=== PATIENT | female | born 1965 | race Asian ===

== ENCOUNTER 2024-02-07 18:41 | Emergency (ER) | payer BC, SELFPAY ==
[2024-02-07 18:54] VITALS: BP 125/86
--- NOTE | 2024-02-07 21:29 | ED.GENMED ---
History of Present Illness
General
Chief Complaint: Abdominal Symptoms
Source: patient
Exam Limitations: none
Time Seen by Provider: 02/07/24 21:12
Travel History
Have you had any contact with someone who has COVID-19?: No
Do you have any symptoms of coronavirus? Fever > 100 degrees, chills, cough, shortness of breath, sore throat, loss of taste or smell, muscle aches, or headache?: No
History of Present Illness
History of Present Illness:
58-year-old female presents with nausea and vomiting onset yesterday reoccurred this morning. She notes mild diffuse abdominal pain. No diarrhea. No fever. No chest pain or cough. Initially seen at the urgent care earlier had lab work performed
and was given IM Zofran. Symptoms are not improving. No diarrhea. No fever. No other complaints at this time
Phy Exam
Physical Exam
Physical Exam:
General: Well-appearing female no acute respiratory distress
HEENT: Normocephalic mucosa dry neck supple
Heart: Regular rate and rhythm no murmur
Lungs: Clear to auscultation bilaterally no wheezing
Abdomen is soft nontender nondistended no guarding or rebound normal bowel sounds
Extremities: No cyanosis or edema
Course
Orders/Labs/Results
Orders:
Orders
02/07/24 21:27
0.9% Sodium Chloride 1000 ml [Nss] 1,000 ml IV BOLUS
Acetaminophen [Tylenol] 650 mg PO NOW STA
Ondansetron Injectable [Zofran] 4 mg IV NOW STA
02/07/24 21:43
Complete Blood Count/With Diff Urgent
Comprehensive Metabolic Panel Urgent
Lipase Urgent
02/07/24 23:41
Urinalysis Reflex To Culture Urgent
Date Specimen was Collected: 02/07/24
Time Specimen was Collected: 23:40
Urine Microscopic Reflex Cult Urgent
02/07/24 23:44
Potassium Chloride [KCl] 40 meq PO NOW STA
02/08/24 00:15
Diphenhydramine [Benadryl] 25 mg IV NOW STA
Prochlorperazine [Compazine] 10 mg IV NOW STA
Abnormal Lab Results
02/07/24 02/07/24
21:43 23:41
MCH 31.5 H pg
(27.0-31.0)
Sodium 134 L mmol/L
(135-145)
Potassium 3.0 L mmol/L
(3.5-5.1)
Creatinine 0.5 L mg/dL
(0.6-1.0)
Glucose 103 H mg/dl
(70-99)
Urine Ketones 1+ A
(Negative)
Leukocyte Esterase Rfl Trace A
(Negative)
Urine Bacteria (Reflex) Few A
(Negative)
02/07/24 21:43
02/07/24 21:43
Vital Signs
Initial and Last Documented VS:
Initial Vital Signs
Temp Pulse Resp BP Pulse Ox
98.1 F 79 18 125/86 95
02/07/24 18:54 02/07/24 18:54 02/07/24 18:54 02/07/24 18:54 02/07/24 18:54
Last Documented Vital Signs
Temp Pulse Resp BP Pulse Ox
98.1 F 82 20 122/86 97
02/07/24 18:54 02/07/24 21:57 02/07/24 21:57 02/07/24 21:57 02/07/24 21:57
MDM/Problems Addressed
Differential Diagnosis Includes:
Nausea with vomiting benign abdominal exam. Do not suspect obstruction. Question possible viral illness. Check for electrolyte abnormality. Will treat symptoms with fluids Zofran and Tylenol for her headache.
*Critical Care Note
Total Time (30-74mins, 75-104mins- exclusive of procedures): Not Applicable
Update Note
Update Note:
Patient reevaluated multiple times. Still with residual headache. Nausea was improved. She was given Tylenol with minimal relief of her headache. Headache has been gradual in onset not sudden. She was given Compazine and Benadryl is now resting
comfortably. She now states she wants to go home. Suspect underlying viral illness.
ED Attending Note
-
Portions of this chart may have been created with voice recognition software.� Occasional wrong word or��sound alike� substitutions may have occurred due to the inherent limitations of voice recognition software.
Discharge Plan
Departure
Patient Disposition: Home (Routine Discharge)
Date of Disposition: 02/08/24
Time of Disposition: 01:35
Patient with high blood pressure during this ER visit?: No
Discharge Problem:
Nausea & vomiting
Prescriptions:
No Action
hydrocodone-acetaminophen 1 TABLET tablet
1 tab PO Q4HPRN PRN (Reason: PAIN > 4) Qty: 20 0RF
Referrals:
Mehnaz Branch MD [Family Provider] -
Activity Restrictions/Additional Instructions:
Drink plenty clear liquids. Advance to bland diet as tolerated. Return for worsening symptoms otherwise follow-up with family doctor
Interventions
Interventions:
*Risk Screen - Suicide Last Done: 02/07/24 18:54
*General Assessment Last Done: 02/07/24 18:54
*Neglect/Abuse Screening Last Done: 02/08/24 01:10
DI-Cfkndq-Temqfmcudk Assessment Last Done: 02/07/24 21:59
[2024-02-07] MEDS: NSS 1000 IV (21:43)
[2024-02-07] MEDS: ZOFRAN 4 MG IV (21:44)
[2024-02-07] MEDS: TYLENOL 650 MG PO (21:44)
[2024-02-07 21:45] VITALS: BMI 19.9
[2024-02-07 21:57] VITALS: BP 122/86
[2024-02-07 21:57] LABS: % Basophils 0.1 % (0-2); % Immature Granulocytes 0.3 % (0-0.5); % Lymphocytes 24.8 % (20.5-51.1); % Monocytes 4.3 % (1.7-9.3); % Neutrophils 70.5 % (42.2-75.2); Absolute Lymphocytes 1.9 10^3/uL (1.2-3.4); Absolute Monocytes 0.3 10^3/uL (0.1-0.6); Absolute Neutrophils 5.4 10^3/uL (1.4-6.5); Hematocrit 37.8 % (37.0-47.0); Hemoglobin 13.5 g/dL (12.0-16.0); Mean Corp Hgb Conc. 35.7 g/dL (33.0-37.0); Mean Corpuscular Hgb 31.5 pg (27.0-31.0); Mean Corpuscular Volume 88.1 fL (81.0-99.0); Mean Platelet Volume 10.2 fL (7.4-10.4); Nucleated Red Blood Cells % 0 %; Platelet Count 226 10^3/uL (130-400); Red Blood Cell Count 4.29 10^6/uL (4.20-5.40); Red Cell Dist. Width 12.5 % (11.5-14.5); White Blood Cell Count 7.6 10^3/uL (4.8-10.8)
[2024-02-07 22:00] VITALS: BP 123/76
[2024-02-07 22:08] LABS: ALT (SGPT) 22 U/L (0-35); AST (SGOT) 26 U/L (14-36); Albumin 4.1 g/dl (3.5-5.0); Alkaline Phosphatase 71 U/L (38-126); Blood Urea Nitrogen 8 mg/dl (7-17); Calcium 9.2 mg/dl (8.4-10.2); Carbon Dioxide 25 mmol/L (22-30); Chloride 103 mmol/L (98-107); Estimated Creatinine Clearance 90 ml/min; Glucose 103 mg/dl (70-99); Lipase 70 U/L (23-300); Sodium 134 mmol/L (135-145); Total Bilirubin 1.1 mg/dl (0.2-1.3); Total Protein 6.6 g/dl (6.3-8.2); eGFR > 60.00
[2024-02-07 23:00] VITALS: BP 123/77
[2024-02-08] MEDS: KCL 40 MEQ PO (00:04)
[2024-02-08 00:14] LABS: Urine Albumin Negative (Neg - Trace); Urine Bilirubin Negative (Negative); Urine Character Clear (Clear); Urine Color Yellow; Urine Glucose Negative (Negative); Urine Ketone 1+ (Negative); Urine Leukocyte Trace (Negative); Urine Nitrite Negative (Negative); Urine Occult Blood Negative (Negative); Urine Urobilinogen Negative (Neg - 1+)
[2024-02-08] MEDS: COMPAZINE 10 MG IV (00:44)
[2024-02-08] MEDS: BENADRYL 25 MG IV (00:45)
[2024-02-08 01:17] LABS: Urine Bacteria Few (Negative); Urine Red Blood Cell 0-2 /HPF (0-2)
[2024-02-08 01:38] VITALS: BP 124/88
== END 2024-02-08 01:52 | disposition home or self-care (01) ==
LOC: EMR 18:41
PROVIDERS: Physician Assistant; EMERGENCY PHYSICIAN Emergency Medicine; FAMILY PHYSICIAN Family Medicine
DX: R11.2 Nausea with vomiting, unspecified (principal); R10.84 Generalized abdominal pain; R51.9 Headache, unspecified
CPT/HCPCS: 99284; 96374; 96375 ×2; 96361; 80053; 81003; 81015; 83690; 85025

== ENCOUNTER → 2024-04-04 08:49 | Outpatient (REF) | payer BC, SELFPAY | LOC: WDC 08:49 | PROVIDERS: ATTENDING PHYSICIAN Nurse Practitioner Adult Health; FAMILY PHYSICIAN Family Medicine | DX: Z12.31 Encounter for screening mammogram for malignant neoplasm of breast (principal); Z85.3 Personal history of malignant neoplasm of breast | CPT/HCPCS: 77063; 77067 ==

== ENCOUNTER → 2025-05-01 08:34 | Outpatient (REF) | payer OTHER, SELFPAY | LOC: WDC 08:34 | PROVIDERS: ATTENDING PHYSICIAN Nurse Practitioner Adult Health; FAMILY PHYSICIAN Family Medicine | DX: Z12.31 Encounter for screening mammogram for malignant neoplasm of breast (principal); Z85.3 Personal history of malignant neoplasm of breast; R92.2 Inconclusive mammogram | CPT/HCPCS: 77063; 77067 ==

== ENCOUNTER → 2025-10-13 07:57 | Outpatient (REF) | payer OTHER, SELFPAY | LOC: WDC 07:57 | PROVIDERS: ATTENDING PHYSICIAN Nurse Practitioner Adult Health; FAMILY PHYSICIAN Family Medicine | DX: R92.2 Inconclusive mammogram (principal) | CPT/HCPCS: 76641 ==